=== PATIENT | female | born 1940 | race Caucasian/White ===

== ENCOUNTER → 2017-03-09 | Outpatient (CLI) | payer MEDICARE, BC ==
[~2017-03-09] MED LIST: ALDACTONE25 MG PO; AMBIEN5 MG PO; ASPIRIN EC81 MG PO; CELEXA10 MG PO; CENTRUM SILVER1 TAB PO; CO Q-10100 MG PO; FLONASE 50 MCG/16 GM NOSE; KLOR-CON M2020 MEQ PO; LEVOTHROID (S125 MCG PO; MAGOX 400400 MG PO; NEURONTIN300 MG PO; NITROGLYCERIN0.6 MG TOP; NORCO 5-325 MG1 TAB PO; NORVASC2.5 MG PO; OSCAL + D500 MG PO; PRADAXA150 MG PO; PRILOSEC40 MG PO; RYTHMOL150 M1 PO; STOOL SOFTENER1 EACH PO; ULTRAM50 MG PO; ZOCOR80 M1 PO
== END ==
LOC: GBCOE 13:00
DX: Z12.31 Encounter for screening mammogram for malignant neoplasm of breast (principal)
CPT/HCPCS: G0202

== ENCOUNTER → 2017-05-10 | Outpatient (CLI) | payer MEDICARE, BC | END | disposition disaster alternative care site (69) | LOC: LGSMG 15:48 | DX: I25.10 Atherosclerotic heart disease of native coronary artery without angina pectoris (principal) ==

== ENCOUNTER → 2017-05-10 | Outpatient (CLI) | payer MEDICARE, BC ==
[2017-05-10 14:31] LABS: ALBUMIN 3.6 gm/dL (3.5-5.0); ANION GAP 11.1 (10.0-19.0); CALCIUM 8.7 mg/dL (8.5-10.5); CREATININE 1.2 mg/dL (0.5-1.1); PHOSPHORUS 3.2 mg/dL (2.5-4.9); POTASSIUM 4.1 mMol/L (3.7-5.1)
== END | disposition disaster alternative care site (69) ==
LOC: LCNC 14:03
PROVIDERS: Internal Medicine Interventional Cardiology
DX: R42 Dizziness and giddiness (principal)

== ENCOUNTER → 2017-06-06 | Outpatient (CLI) | payer MEDICARE, BC | END | disposition disaster alternative care site (69) | LOC: GKIC 13:34 | DX: R51 Headache (principal); I67.82 Cerebral ischemia ==